=== PATIENT | male | born 1965 ===

== ENCOUNTER 2017-07-14 20:27 | Emergency (ER) | payer SELFPAY ==
[2017-07-14 21:54] VITALS: BP 136/75; PULSE 91; RESP 18; TEMP 98.3; O2SAT 100
--- NOTE | 2017-07-14 22:51 | ED PDOC ---
Upper Extremity Pain/Injury Time Seen by Provider: 07/14/17 22:37 Chief Complaint (Nursing): Upper Extremity Problem/Injury Chief Complaint (Provider): Shoulder Pain - nontraumatic History Per: Patient History/Exam Limitations: no limitations Onset/Duration Of Symptoms: Days (many), Waxing/Waning, Intermittent Episodes Current Symptoms Are (Timing): Still Present Quality: Sharp Severity: Mild Exacerbating Factor(s): Movement Past Medical History Vital Signs: Last Vital Signs Temp 98.3 F 07/14/17 21:48 Pulse 91 H 07/14/17 21:48 Resp 18 07/14/17 21:48 BP 136/75 07/14/17 21:48 Pulse Ox 100 07/14/17 21:48 - Family History Family History: States: Unknown Family Hx - Home Medications Home Medications: Ambulatory Orders Medication Instructions Recorded Acetaminophen with Codeine 1 - 2 tab PO QID #32 tablet 07/14/17 [Tylenol with Codeine #3 Tablet] - Allergies Allergies/Adverse Reactions: Allergies Allergy/AdvReac Type Severity Reaction Status Date / Time No Known Allergies Allergy Verified 07/14/17 21:52 Review of Systems Musculoskeletal: Positive for: Shoulder Pain Physical Exam - Reviewed Nursing Documentation Reviewed: Yes Vital Signs Reviewed: Yes - Physical Exam Appears: Positive for: Well, Non-toxic, No Acute Distress Head Exam: Positive for: ATRAUMATIC, NORMAL INSPECTION, NORMOCEPHALIC Neck: Positive for: Normal, Painless ROM, Supple. Negative for: Decreased ROM Cardiovascular/Chest: Positive for: Regular Rate, Rhythm, Chest Non Tender. Negative for: Edema, Gallop, Murmur, Bradycardia, Tachycardia Respiratory: Positive for: Normal Breath Sounds. Negative for: Decreased Breath Sounds, Accessory Muscle Use, Crackles, Stridor, Wheezing, Respiratory Distress Pulses-Carotid (L): 2+ Pulses-Carotid (R): 2+ Pulses-Radial (L): 2+ Pulses-Radial (R): 2+ Comments: capillary refill <2secs in all digits - ECG O2 Sat by Pulse Oximetry: 100 Medical Decision Making Medical Decision Making: pt previously dx with pinched nerve and now experiences intermittent numbness along his ulnar nerve; refer to ortho Disposition - Clinical Impression Clinical Impression: Shoulder pain, right, Shoulder pain, Nontraumatic shoulder pain - Patient ED Disposition Is Patient to be Admitted: No Doctor Will See Patient In The: Office Counseled Patient/Family Regarding: Diagnosis, Need For Followup, Rx Given - Disposition Referrals: Ck Joseph MD [Staff Provider] - Disposition: Routine/Home Disposition Time: 22:51 Condition: GOOD Prescriptions: Acetaminophen with Codeine [Tylenol with Codeine #3 Tablet] 1 - 2 tab PO QID # 32 tablet Instructions: Shoulder Pain (DC) Forms: [employer] (Mongolian)
== END 2017-07-14 23:49 | disposition home or self-care (01) ==
LOC: H.ER 20:27
DX: M25.511 Pain in right shoulder (principal)
CPT/HCPCS: 96372; 99282; J1885

== ENCOUNTER 2018-07-23 20:54 | Emergency (ER) | payer SELFPAY ==
[2018-07-23 20:59] VITALS: RESP 16
--- NOTE | 2018-07-23 21:55 | ED PDOC ---
HPI: General Adult Time Seen by Provider: 07/23/18 21:21 Chief Complaint (Nursing): Medical Clearance Chief Complaint (Provider): Medical and Psychiatric Clearance History Per: Patient, EMS History/Exam Limitations: no limitations Additional Complaint(s): 52 year old male presents to the ED for medical and psychiatric clearance. Patient reports he hit his head against a brick wall and sustained an injury to his scalp x1 hour [employer] because he was frustrated. Denies LOC. Patient reports he has been struggling with his 's health and other difficulties. He states he has not eaten anything today. Patient indicates he has a history of diabetes but has not been taking his medications recently. He states he has been urinating a lot and has not been monitoring his blood sugar. Denies abdominal pain, nausea or vomiting. Denies SI/HI, auditory or visual hallucinations PMD: none Past Medical History Reviewed: Historical Data, Nursing Documentation, Vital Signs Vital Signs: Last Vital Signs Temp 98.4 F 07/23/18 20:56 Pulse 85 07/23/18 20:56 Resp 16 07/23/18 20:56 BP 149/77 07/23/18 20:56 Pulse Ox 100 07/23/18 20:56 - Medical History PMH: Diabetes - Surgical History Other surgeries: Knee and ear procedure - Family History Family History: States: Unknown Family Hx - Social History Current smoker - smoking cessation education provided: No Alcohol: None Drugs: Denies - Home Medications Home Medications: Ambulatory Orders Medication Instructions Recorded Acetaminophen with Codeine 1 - 2 tab PO QID #32 tablet 07/14/17 [Tylenol with Codeine #3 Tablet] - Allergies Allergies/Adverse Reactions: Allergies Allergy/AdvReac Type Severity Reaction Status Date / Time No Known Allergies Allergy Verified 07/23/18 20:59 Review of Systems ROS Statement: Except As Marked, All Systems Reviewed And Found Negative Musculoskeletal: Positive for: Other (Mild head pain around neck area) Neurological: Negative for: Other (LOC) Physical Exam - Reviewed Nursing Documentation Reviewed: Yes Vital Signs Reviewed: Yes - Physical Exam Comments: GENERAL APPEARANCE: Patient is awake, alert, oriented x 3, in no acute distress. SKIN: Warm, dry; (-) cyanosis; (-) rash. HEAD: Diffuse erythematous abrasion to the top scalp with mild active bleeding, mild swelling, and mild tenderness, no deformity EYES: (-) conjunctival pallor, (-) scleral icterus. ENMT: (-)hemotypmanum (-) sinus tenderness; mucous membranes are moist. NECK: (-) tenderness, (-) stiffness, (-) meningismus, (-) lymphadenopathy. CHEST AND RESPIRATORY: (-) rales, (-) rhonchi, (-) wheezes; breath sounds equal bilaterally. HEART AND CARDIOVASCULAR: (-) irregularity; (-) murmur, (-) gallop. ABDOMEN: normal bowel sounds, soft, non tender EXTREMITIES: (-) deformity. NEURO AND PSYCH: Mental status as above. - Laboratory Results Result Diagrams: 07/23/18 22:11 07/23/18 22:11 - ECG O2 Sat by Pulse Oximetry: 100 (RA) Pulse Ox Interpretation: Normal Medical Decision Making Medical Decision Making: Initial Impression: Medical and psychiatric clearance Initial Plan: --Head CT --CMP --Drug screen --CBC --Glucose stat --Urinalysis Pt's sugar 366, >500 glucose in urine, trace ketones, normal anion gap discussed with Dr. Parsons, recommends insulin IV and SC, will treat with Time: 2253 EXAM: CT Head Without IV contrast. CLINICAL HISTORY: HEAD INJURY TECHNIQUE: Axial computed tomography images of the head/brain without intravenous contrast. COMPARISON: None provided. FINDINGS: BRAIN: No acute intraparenchymal hemorrhage. No mass lesion. No CT evidence for acute territorial infarct. No midline shift or extra-axial collections. VENTRICLES: No hydrocephalus. ORBITS: The orbits are unremarkable. SINUSES AND MASTOIDS: The paranasal sinuses and mastoid air cells are clear. BONES: No fracture. SOFT TISSUES: Unremarkable. IMPRESSION: No acute intracranial abnormality. Electronically signed on Jul 23, 2018 10:54:07 PM EDT by: Dc Nolasco M.D., M.B.A., Certified By [employer] Trained MRI and CT Specialist re eval pt is feeling well, glucose 340, but ate sandwich and still getting fluids, otherwise crisis eval to medical and psych clearance for incarceration 00:00 case endorsed to MARIA EUGENIA Lucio, pending crisis eval, re check sugar, dispo Scribe Attestation: Documented by Joseph Garay acting as a scribe for Rahul HEDRICK. Provider Scribe Attestation: All medical record entries made by the Scribe were at my direction and personmoni tompkins dictated by me. I have reviewed the chart and agree that the record accurately reflects my personal performance of the history, physical exam, medical decision making, and the department course for this patient. I have also personally directed, reviewed, and agree with the discharge instructions and disposition. Disposition - Clinical Impression Clinical Impression: Head injury, Hyperglycemia, Abrasion head - Patient ED Disposition Is Patient to be Admitted: Transfer of Care (case endorsed to MARIA EUGENIA Lucio, pending crisis eval, re check sugar, dispo) - Disposition Disposition: Transfer of Care (case endorsed to Khadijah, PAC, pending crisis eval, re check sugar, dispo) Disposition Time: 00:11 Condition: STABLE Instructions: General (DC) Forms: [employer] ([place] Citizen)
[2018-07-23 22:15] LABS: BASO % 0.2 % (0.0-2.0); EOS # 0.1 K/uL (0.0-0.7); EOS % 0.7 % (0.0-4.0); HEMOGLOBIN 13.2 g/dL (12.0-18.0); LYMPH # 0.6 K/uL (1.0-4.3); LYMPH % 7.2 % (20.0-40.0); MEAN CELL VOLUME 89.3 fl (80.0-94.0); MEAN CORPUSCULAR HEMOGLOBIN 31.1 pg (27.0-31.0); MEAN CORPUSCULAR HGB CONC 34.8 g/dL (33.0-37.0); MEAN PLATELET VOLUME 9.2 fl (7.2-11.7); MONO # 0.5 K/uL (0.0-0.8); MONO % 6.9 % (0.0-10.0); NEUT # 6.7 K/uL (1.8-7.0); PLATELET COUNT 115 K/uL (130-400); RBC 4.24 Mil/uL (4.40-5.90); RED CELL DISTRIBUTION WIDTH 13.6 % (11.5-14.5); WHITE BLOOD COUNT 7.8 K/uL (4.8-10.8)
[2018-07-23 22:19] LABS: URINE BILIRUBIN NEGATIVE (NEGATIVE); URINE BLOOD SMALL (NEGATIVE); URINE CLARITY CLEAR (Clear); URINE COLOR YELLOW (YELLOW); URINE GLUCOSE (UA) >=500 mg/dL (NEGATIVE); URINE LEUKOCYTE ESTERASE NEG Leu/uL (Negative); URINE PROTEIN 30 mg/dL (NEGATIVE); URINE UROBILINOGEN 0.2-1.0 mg/dL (0.2-1.0)
[2018-07-23 22:27] LABS: ALB/GLOB RATIO 1.2 (1.0-2.1); ALBUMIN 4.4 g/dL (3.5-5.0); ALT/SGPT 78 U/L (21-72); AST/SGOT 57 U/L (17-59); BLOOD UREA NITROGEN 17 mg/dl (9-20); CALCIUM 8.7 mg/dL (8.4-10.2); GFR NON-AFRICAN AMERICAN > 60
[2018-07-23 22:38] LABS: BARBITURATES, UR NEGATIVE (NEGATIVE); BENZODIAZEPINES, UR NEGATIVE (NEGATIVE); OPIATES, UR NEGATIVE (NEGATIVE); PHENCYCLIDINE, UR NEGATIVE (NEGATIVE)
[2018-07-23] MEDS ORDERED: Sodium Chloride 0.9% 1,000 ML IV SCH (22:45)
[2018-07-23] MEDS ORDERED: Insulin Regular 100 units/ml IVP STA (22:53)
[2018-07-23] MEDS ORDERED: Insulin Regular 100 units/ml SC STA (22:53)
[2018-07-23 23:30] LABS: EOSINOPHIL 2 % (0-7); LYMPHOCYTE 6 % (20-50); MONOCYTE 8 % (0-10); NEUTROPHIL 84 % (42-75); TOTAL CELLS COUNTED 100
[2018-07-23 23:32] LABS: PLATELET ESTIMATE SLIGHTLY DECREASED (NORMAL)
[2018-07-24] MEDS ORDERED: Insulin Regular 100 units/ml SC STA (00:20)
[2018-07-24] MEDS ORDERED: Insulin Regular 100 units/ml ONE (00:31)
[2018-07-24] MEDS ORDERED: Sodium Chloride 0.9% 1,000 ML IV STA (00:31)
--- NOTE | 2018-07-24 02:06 | ED PDOC ---
- Laboratory Results Result Diagrams: 07/23/18 22:11 07/23/18 22:11 Lab Results: Total Bilirubin 1.0 mg/dl (0.2-1.3) 07/23/18 22:11 AST 57 U/L (17-59) 07/23/18 22:11 ALT 78 U/L (21-72) H 07/23/18 22:11 Alkaline Phosphatase 197 U/L (38-126) H 07/23/18 22:11 Total Protein 8.0 G/DL (6.3-8.2) 07/23/18 22:11 Albumin 4.4 g/dL (3.5-5.0) 07/23/18 22:11 Globulin 3.6 gm/dL (2.2-3.9) 07/23/18 22:11 Albumin/Globulin Ratio 1.2 (1.0-2.1) 07/23/18 22:11 Urine Color Yellow (YELLOW) 07/23/18 22:11 Urine Clarity Clear (Clear) 07/23/18 22:11 Urine pH 6.0 (5.0-8.0) 07/23/18 22:11 Ur Specific [place] 1.030 (1.003-1.030) 07/23/18 22:11 Urine Protein 30 mg/dL (NEGATIVE) 07/23/18 22:11 Urine Glucose (UA) >=500 mg/dL (NEGATIVE) 07/23/18 22:11 Urine Ketones Trace mg/dL (NEGATIVE) 07/23/18 22:11 Urine Blood Small (NEGATIVE) 07/23/18 22:11 Urine Nitrate Negative (NEGATIVE) 07/23/18 22:11 Urine Bilirubin Negative (NEGATIVE) 07/23/18 22:11 Urine Urobilinogen 0.2-1.0 mg/dL (0.2-1.0) 07/23/18 22:11 Ur Leukocyte Esterase Neg Garrett/uL (Negative) 07/23/18 22:11 Urine RBC (Auto) 3 /hpf (0-3) 07/23/18 22:11 Urine Microscopic WBC < 1 /hpf (0-5) 07/23/18 22:11 - ECG O2 Sat by Pulse Oximetry: 97 - Progress ED Course And Treament: 0000 Signed out to me pending sobriety and crisis evaluation. 0100 Pt. evaluated by Hanna GIBBS who spoke with Dr. Brown and cleared pt. for incarceration. 0200 Repeat FSBS: 284 Pt. informed of results and advised to f/u with [facility]. Offers no complaints. Disposition - Clinical Impression Clinical Impression: Head injury, Hyperglycemia, Abrasion head, Adjustment disorder - POA Present On Arrival: None - Disposition Referrals: [facility] [Outside] Disposition: Routine/Home Disposition Time: 02:04 Condition: STABLE Additional Instructions: Patient is medically and psychiatrically cleared for incarceration. Instructions: Adjustment Disorder, Hyperglycemia, Adult (DC) Forms: [employer] (Bulgarian)
[2018-07-24 03:36] VITALS: BP 122/78; PULSE 82; TEMP 98.2
[2018-07-24 05:59] VITALS: O2SAT 97
--- NOTE | 2018-07-24 11:21 | CT ---
Date of service: 07/23/2018 PROCEDURE: CT HEAD WITHOUT CONTRAST. HISTORY: head injury COMPARISON: None available. TECHNIQUE: Axial computed tomography images were obtained through the head/brain without intravenous contrast. Radiation dose: Total exam DLP = 820.31 mGy-cm. This CT exam was performed using one or more of the following dose reduction techniques: Automated exposure control, adjustment of the mA and/or kV according to patient size, and/or use of iterative reconstruction technique. FINDINGS: HEMORRHAGE: No intracranial hemorrhage. BRAIN: No mass effect or edema. Minor cerebral cortical atrophy is noted with the patient's age. No cortical effacement is seen. VENTRICLES: Unremarkable. No hydrocephalus. CALVARIUM: Unremarkable. PARANASAL SINUSES: Unremarkable as visualized. No significant inflammatory changes. MASTOID AIR CELLS: Unremarkable as visualized. No inflammatory changes. OTHER FINDINGS: None. IMPRESSION: No evidence of intracranial hemorrhage. This agrees with preliminary report.
== END 2018-07-24 02:15 | disposition home or self-care (01) ==
LOC: H.ER 20:54
DX: S09.90XA Unspecified injury of head, initial encounter (principal); E11.65 Type 2 diabetes mellitus with hyperglycemia; Z91.14 Patient's other noncompliance with medication regimen
CPT/HCPCS: 70450; 80053; 81003; 82948; 85025; 96360; 96361; 96372; 96374; 99285; G0480; J7030